=== PATIENT | male | born 1975 | race Hispanic/Latino ===

== ENCOUNTER → 2022-01-04 16:56 | Outpatient (CLI) | payer BC, SELFPAY ==
--- NOTE | ~2022-01-04 | XR_ITS ---
EXAMINATION: XR chest 2V EXAM DATE: 01/04/2022 17:09 INDICATION: COUGH > 1 mo, afebrile; hx of HTN, non smoker . TECHNIQUE: Frontal and lateral projections of the chest obtained and reviewed. There is no prior ten dy for comparison. FINDINGS: The lungs are clear. There are no pleural effusions. The cardiomediastinal silhouette is within normal limits. There is no pneumothorax suspected. The bones and soft tissues are unremarkab le. IMPRESSION: No acute cardiopulmonary findings. Reviewed, dictated and finalized at location G.
== END ==
PROVIDERS: PCP Emergency Medicine; Visit Provider Emergency Medicine
DX: R05.9 Cough, unspecified (principal); I10 Essential (primary) hypertension
CPT/HCPCS: 71046

== ENCOUNTER → 2022-01-06 00:39 | Outpatient (CLI) | payer BC, SELFPAY ==
[2022-01-06 14:06] LABS: SARS-CoV-2 RNA PCR Negative
== END ==
PROVIDERS: PCP Emergency Medicine; Visit Provider Emergency Medicine
DX: Z01.812 Encounter for preprocedural laboratory examination (principal); Z20.822 Contact with and (suspected) exposure to COVID-19
CPT/HCPCS: C9803; U0003; U0005

== ENCOUNTER 2024-01-07 14:24 | Outpatient (CLI) | payer OTHER, SELFPAY ==
--- NOTE | ~2024-01-07 | XR_ITS ---
EXAMINATION: XR tibia fibula LT 2V INDICATION: Left lower limb edema TECHNIQUE: AP and lateral views of the left tibia and fibula are obtained on three radiographs. COMPARISON: 01/28/2018 FINDINGS: No fracture, dislocation, or subluxation. The bones, soft tissues, and joint spaces are nor mal. IMPRESSION: 1. No acute osseous abnormality. Reviewed, dictated and finalized at location F.
--- NOTE | ~2024-01-07 | US_ITS ---
EXAMINATION: US venous doppler [facility] DATE: 01/07/2024 15:03 INDICATION: Left lower limb edema TECHNIQUE: Potter scale images without and with compression and Doppler images of the left lower extrem ity veins were obtained. COMPARISON: None FINDINGS: The left common femoral vein, profunda femoral vein, femoral vein, popliteal vein, peroneal trunk, posterior tibial veins, and greater saphenous vein are patent. IMPRESSION: 1. Patent left lower extremity veins. No evidence of deep venous thrombosis. Reviewed, dictated and finalized at location F.
== END 2024-01-07 14:25 | disposition home or self-care (01) ==
PROVIDERS: PCP Emergency Medicine; Visit Provider Emergency Medicine
DX: R60.0 Localized edema (principal)
CPT/HCPCS: 73590; 93971

== ENCOUNTER 2025-03-18 11:18 | Outpatient (CLI) | payer BC, SELFPAY ==
--- NOTE | ~2025-03-18 | MMUS_ITS ---
Examination: MM diagnostic RAPHAEL RT W brian and US breast RT limited INDICATION: 49-year old MALE; right breast lump and pain retroareolar region X one month COMPARISON: None TECHNIQUE: Digital breast tomosynthesis CC and MLO views of the RIGHT breast and left MLO were obtain ed with computer-aided detection to assist in interpretation of the study. FINDINGS: The breasts are heterogeneously dense, which may obscure small masses. There is moderate vo lume of fibroglandular tissue in RIGHT breast compatible with gynecomastia. There are no suspicious masses, calcifications, architectural distortion or any other abnormality in BILATERAL breast. RIGHT BREAST ULTRASOUND FINDINGS: Targeted evaluation of the area of painful lump in right breast was completed. Normal appearing fibro glandular tissue is identified. There are no suspicious cystic or solid mass seen. IMPRESSION: FINDINGS COMPATIBLE WITH GYNECOMASTIA CORRELATES TO THE AREA OF PAINFUL LUMP IN THE RIGHT BREAST . FU RTHER EVALUATION OF PATIENT'S PALPABLE LUMP SHOULD BE BASED ON CLINICAL IMPRESSION. FOLLOW-UP CLINICALLY WARRANTED. RECOMMENDATION: CLINICAL MANAGEMENT OF AREA OF PAIN BI-RADS 2, BENIGN Reviewed, dictated and finalized at location B. IMPRESSION: FINDINGS COMPATIBLE WITH GYNECOMASTIA CORRELATES TO THE AREA OF PAINFUL LUMP IN THE RIGHT BREAST . FURTHER EVALUATION OF PATIENT'S PALPABLE LUMP SHOULD BE BAS ED ON CLINICAL IMPRESSION. FOLLOW-UP CLINICALLY WARRANTED. RECOMMENDATION: CLINICAL MANAGEMENT OF AREA OF PAIN BI-RADS 2, BENIGN
--- OUTSIDE RECORDS SUMMARY | 2025-03-18 12:27 | XMS_ITS | Clinical Summary ---
Author Organization [facility] Address [address] [place] [address] Care Team Providers Care Egg Sorter Name Role Phone Unavailable Primary Care Provider Unavailabl e Source Comments [facility],non-owned Affiliates and Associated Physician Practices is amultiple site organization consisting of ambulatory clinics and hospital sitesin [place], [place], [place] and [place]. This disclosure is being madepursuant to the Care Everywhere program and may not contain all information available regarding this patient. 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
--- OUTSIDE RECORDS SUMMARY | 2025-03-18 12:27 | XMS_ITS | CONTINUITY OF CARE DOCUMENT ---
Author Name beata cota Address Unknown Organization [facility] Address [address] [place] [address] Phone [phone] Care Team Providers Care Industrial Safety And Health Manager Name Role Phone Eddi Singh MD Unavailable [phone] Eddi Singh MD Unavailable [phone] INSURANCE PROVIDERS Payer name Policy type / Coverage type [place] [employer] party ID [facility] [id number]
--- OUTSIDE RECORDS SUMMARY | 2025-03-18 12:27 | XMS_ITS | Continuity of Care Document ---
Author Organization [facility] Address [address] [place] [address] [address] [place] [address] Phone Care Team Providers Care Field Administrator Name Role Phone Chang OD, Laurent Unavailable Unavailable Procedures Procedure Date Eye Exam, New Patient Advance Directives Directive Yes / No Effective Date File Name No Information Encounters Encounter Description Practice Location Reason(s) For Visit Diagnoses Date Provider Providers Copied on Encounter [facility], [address] [place] [address] [address], [place], [place], [id number], [place] tel:[phone] [facility] [place] No Information 7-200 7 Chang OD Laurent. [address] , [address], [place], [address], [place]. tel:[phone] Family History Family Member Type Diagnosis Age At Onset No Information Payers Payer name Insurance type Covered democrat ID Authoriza tion(s) Medicaid [facility] [id number] Social History Type Description Quantity Date Captured [...]
--- OUTSIDE RECORDS SUMMARY | 2025-03-18 12:27 | XMS_ITS | Continuity of Care Document ---
Author Organization [facility] Address [address] [facility] [place] [address] [place] [address] Phone Care Team Providers Care Credit Card Associate Name Role Phone Devyn Tabares MD Unavailable Unavailable Allergies, Adverse Reactions, Alerts Substance Reaction Status Criticality No Known Allergies Active No Inform ation Medications Medication Instructions Dosage Effective Dates (start - stop) Status Comments Ambien 10 mg tablet take 1 tablet by oral route every day at bedtime as needed 10 MG - Active avoid drivi ng or operate machines irbesartan 150 mg tablet take 1 tablet by oral route every day 150 MG - Active Cymbalta 30 mg capsule,delayed release take 1 capsule by oral route every day 30 MG - Active Procedures Procedure Date OFFICE/OUTPATIENT VISIT, EST OFFICE/OUTPATIENT VISIT, EST PREV [...] Diagnoses Date Provider Providers Copied on Encounter [facility], [place], [address], [place], [address], tel:[phone] [facility] [place] No Information [address] [place], [address] , [place]. tel:[phone] OFFICE/OUTPA TIENT VISIT, EST [facility] [place], [address], [place], [address], tel:[phone] [facility] HTN (chief complaint) GERD1 (chief complaint) cough1 (chief complaint) depression 1 (chief complaint) breast1 (chief complaint) LFT (chief complaint) Essential (primary) hypertensionGERD w/o esophagitisMild intermittent asthma, uncomplicatedPolyp of colonMastodyniaGene ralized Anxiety DisorderLiver disease [address], [place], [place], [address] , [place]. tel:[phone] OFFICE/OUTPA TIENT VISIT, EST [facility] [place], [address], [place], [place], [address], [place] tel:[phone] [facility] [place] HTN (chief complaint) cough1 (chief complaint) GERD1 (chief complaint) Essential (primary) hypertensionMild intermittent asthma, uncomplicatedGERD w/o esophagitis Fe-2 5 Rayshawn Shepard. [address], [place], [place], [address] , [place]. tel:[phone] PREV VISIT, EST, AGE 40-64 [facility] [place], [address], [place], [place], [address], [place] tel:[phone] [facility] [place] physical (chief complaint) Encounter for general adult medical exam w abnormal findingsEssential (primary) hypertensionPrimary insomniaPolyp of colonAcute bronchitis Feb-0 5 Rayshawn Shepard. [address], [place], [place], [address] , [place]. tel:[phone] OFFICE/OUTPA TIENT VISIT, EST [facility] [place], [address], [place], [place], [address], [place] tel:[phone] [facility] [place] cough1 (chief complaint) eczema1 (chief complaint) Acute bronchitisEczema Sep- 4 Rayshawn Shepard. [address], [place], [place], [address] , [place]. tel:[phone] OFFICE/OUTPA TIENT VISIT, EST [facility] [place], [address] [place], [address], [place] tel:[phone] [facility] Medicine insomnia1 (chief complaint) HTN (chief complaint) skin (chief complaint) Essential (primary) hypertensionEczemaT inea corporisPrimary insomnia Jun-2 4 Rayshawn Shepard. [address], [place], [place], [address] , [place]. tel:[phone] OFFICE/OUTPA TIENT VISIT, EST [facility] [place], [address], [place], [place], [address], [place] tel:[phone] [facility] insomnia1 (chief complaint) leg pain1 (chief complaint) skin (chief complaint) knee pain1 (chief complaint) Pain in left lower legPrimary insomniaUpper abdominal painPain in right kneeEdema 4 Rayshawn Shepard. [address], [place], [place], [address] , [place]. [phone] OFFICE/OUTPA TIENT VISIT, EST [facility] [place], [address], [place], [place], [address], [place] tel:[phone] [facility] insomnia1 (chief complaint) leg edema1 (chief complaint) abd pain1 (chief complaint) knee pain1 (chief complaint) Pain in left lower legPain in right kneeUpper abdominal painPrimary insomnia 4 Rayshawn Chung [address], [place], [place], [address] , [place]. [phone] PREV VISIT, EST, AGE 40-64 [facility], [address], [place], [place], [address], [place] tel:[phone] [facility] physical (chief complaint) Encounter for general adult medical exam w abnormal findingsEssential (primary) hypertensionPrimary insomniaEczemaKeloi d 3 Rayshawn Chung [address], [place], [place], [address] , [place]. [phone] PREV VISIT, EST, AGE 40-64 [facility] [place], [address], [place], [place], [address], [place] tel:[phone] [facility] physical (chief complaint) Encounter for general adult medical exam w abnormal findingsPrimary insomniaEssential (primary) hypertensionAbnorma l weight gain 3 Rayshawn Shepard. [address], [place], [place], [address] , [place]. tel:[phone] OFFICE/OUTPA TIENT VISIT, EST [facility] [place], [address], [place], [place], [address], [place] [phone] [facility] [place] sick (chief complaint) Viral infection 2 Tabares Devyn. [address], [place], [place], [address] , [place]. tel: [phone] OFFICE/OUTPA TIENT VISIT, EST [facility] [place], [address], [place], [place], [address], [place] tel:[phone] [facility] [place] insomnia1 (chief complaint) HTN (chief complaint) cough1 (chief complaint) glucose1 (chief complaint) liver disease1 (chief complaint) Liver diseasePrimary insomniaHyperglycem iaEssential (primary) hypertensionChronic cough 2 Rayshawn Shepard. [address], [place], [place], [address] , [place]. tel: [phone] OFFICE/OUTPA TIENT VISIT, EST [facility] [place], [address], [place], [place], [address], [place] tel:[phone] [facility] [place] cough1 (chief complaint) dizziness1 (chief complaint) fatigue1 (chief complaint) HTN (chief complaint) Viral infectionEssential (primary) hypertensionAbnorma l weight gainFatigueDizzines s 2 Rayshawn Shepard. [address], [place], [place], [address] , [place]. tel:[phone] PREV VISIT, EST, AGE 40-64 [facility] [place], [address], [place], [place], [address], [place] tel:[phone] [facility] [place] cough1 (chief complaint) Encounter for general adult medical exam w abnormal findingsLiver diseaseInsomniaEsse ntial (primary) hypertensionChronic cough 2 Rayshawn Devyn. [address], [place], [place], [address] , [place]. tel: [phone] OFFICE/OUTPA TIENT VISIT, EST [facility], [address], [place], [place], [address], [place] tel:[phone] [facility] insomnia1 (chief complaint) liver1 (chief complaint) pain1 (chief complaint) Liver diseaseEssential (primary) hypertensionInsomni aAtypical facial pain 1 Rayshawn Chung [address], [place], [place], [address] , [place]. tel:[phone] OFFICE/OUTPA TIENT VISIT, [facility], [address], [place], [place], [address], [place] tel:[phone] [facility] HTN (chief complaint) insomnia1 (chief complaint) liver1 (chief complaint) Liver diseaseInsomniaEsse ntial (primary) hypertension Mar- 1 Rayshawn Chung [address], [place], [place], [address] , [place]. tel:[phone] PREV VISIT, EST, AGE 40-64 [facility] [place], [address], [place], [place], [address], [place] tel:[phone] [facility] Medicine physical (chief complaint) Encounter for general adult medical exam w abnormal findingsTinea corporisInsomniaEss ential (primary) hypertensionLiver disease May- 0 Rayshawn Chung [address], [place], [place], [address] , [place]. tel:[phone] OFFICE/OUTPA TIENT VISIT, EST [facility], [address], [place], [place], [address], [place] tel:[phone] [facility] insomnia1 (chief complaint) HTN (chief complaint) liver1 (chief complaint) Cirrhosis of liverInsomniaEssent ial (primary) hypertension Dec-3 0 Rayshawn Shepard. [address], [place], [place], [address] , [place]. tel:[phone] OFFICE/OUTPA TIENT VISIT, [facility], [address], [place], [place], [address], [place] tel:[phone] [facility] [place] liver1 (chief complaint) Liver diseaseCirrhosis of liver Rayshawn Shepard. [address], [place], [place], [address] , [place]. [phone] Referring Provider: [address]ammad [address], [place], [place], [address]. tel:[phone] OFFICE/OUTPA TIENT VISIT, EST [facility] [place], [address], [place], [place], [address], [place] tel:[phone] [facility] [place] LFT (chief complaint) Liver disease Rayshawn Shepard. [address], [place], [place], [address] , [place]. [phone] Referring Provider: [address], [place], [place], [address]. tel:[phone] PREV VISIT, EST, AGE 40-64 [facility] [place], [address], [place], [place], [address], [place] tel:[phone] [facility] PHysical (chief complaint) Encounter for general adult medical exam w abnormal findingsInsomniaEss ential (primary) hypertension 9 Rayshawn Shepard. [address], [place], [place], [address] , [place]. [phone] Referring Provider: [address], [place], [place], [address]. tel:[phone] OFFICE/OUTPA TIENT VISIT, EST [facility] [place], [address], [place], [place], [address], [place] tel:[phone] [facility] HTN (chief complaint) insomnia1 (chief complaint) nevus1 (chief complaint) InsomniaEssential (primary) hypertensionOther hypertrophic disorders of the skin 8 Rayshawn Shepard. [address], [place], [place], [address] , [place]. [phone] Referring Provider: Devyn Tabares, [address], [place], [place], [address]. tel:[phone] PREV VISIT, EST, AGE 40-64 [facility] [place], [address], [place], [place], [address], [place] [phone] [facility] PHysical (chief complaint) Encounter for general adult medical exam w abnormal findingsNight sweatsEssential (primary) hypertensionPain in left ankleInsomnia 8 Rayshawn Shepard. [address], [place], [place], [address] , [place]. [phone] Referring Provider: Hammad [address], [place], [place], [address]. tel:[phone] OFFICE/OUTPA TIENT VISIT, EST [facility] [place], [facility] [address], [place], [place], [address], [place] [phone] [facility] insomnia1 (chief complaint) HTN (chief complaint) axillary pain1 (chief complaint) urinary frequency (chief complaint) InsomniaEssential (primary) hypertensionLocaliz ed enlarged lymph nodesNocturia 7 Rayshawn Shepard. [address], [place], [place], [address] , [place]. [phone] Referring Provider: [address], [place], [place], [address]. tel:[phone] PREV VISIT, EST, AGE 40-64 [facility] [place], [address], [place], [place], [address], [place] [phone] [facility] PHysical (chief complaint) Encounter for general adult medical exam w abnormal findingsInsomniaEss ential (primary) hypertensionNocturi a 7 [address], [place], [place], [address] , [place]. [phone] Referring Provider: Hammad [address], [place], [place], [address]. tel:[phone] OFFICE/OUTPA TIENT VISIT, EST [facility] [place], [address], [place], [place], [address], [place] tel:[phone] [facility] [place] insomnia1 (chief complaint) HTN (chief complaint) anxiety1 (chief complaint) knee pain1 (chief complaint) Other insomniaEssential (primary) hypertensionMajor depressive disorder, single episode, unspecifiedPain in right knee 0 3-201 6 Rayshawn Shepard. [address], [place], [place], [address] , [place]. [phone] Referring Provider: Hammad [address], [place], [place], [address]. tel:[phone] OFFICE/OUTPA TIENT VISIT, [facility], [address], [place], [place], [address], [place] tel:[phone] [facility] [place] HTN (chief complaint) insomnia1 (chief complaint) depression 1 (chief complaint) coldsore (chief complaint) Essential (primary) hypertensionMajor depressive disorder, single episode, unspecifiedOther insomniaHerpes simplex infection 0 7 6 Rayshawn Shepard. [address], [place], [place], [address] , [place]. [phone] Referring Provider: Hammad [address], [place], [place], [address]. tel:[phone] OFFICE/OUTPA TIENT VISIT, [facility], [address], [place], [place], [address], [place] tel:[phone] [facility] [place] HTN (chief complaint) cough (chief complaint) depression (chief complaint) mole (chief complaint) Essential (primary) hypertensionRash and other nonspecific skin eruptionAcute bronchitis, unspecifiedDepressi on 0-201 6 Rayshawn Shepard. [address], [place], [place], [address] , [place]. [phone] Referring Provider: Hammad [address], [place], [place], [address]. tel:[phone] OFFICE/OUTPA TIENT VISIT, [facility], [address], [place], [place], [address], [place] tel:[phone] [facility] HTN1 (chief complaint) insomnia1 (chief complaint) sick (chief complaint) Essential (primary) hypertensionOther insomniaAcute upper respiratory infection, unspecifiedVitamin D deficiency, unspecified 6 Rayshawn Shepard. [address], [place], [place], [address] , [place]. tel:[phone] Referring Provider: Hammad [address], [place], [place], [address]. tel:[phone] PREV VISIT, NEW, AGE 40-64 [facility], [address], [place], [place], [address], [place] tel:[phone] [facility] Physical (chief complaint) Encounter for general adult medical exam w abnormal findingsEssential (primary) hypertensionOther insomniaCough 6 Rayshawn Shepard. [address], [place], [place], [address] , [place]. tel:[phone] Referring Provider: Hammad [address] [facility] [address], [place], [place], [address]. tel:[phone] Family History Family Member Type Diagnosis Age At Onset Mother Problem (finding) Stroke Father Problem (finding) Unknown Brother Problem (finding) Alive and well Payers Payer name Insurance type Covered libertarian ID Authorlitzya anabel(s) [facility] CI [id number] Social History Type Description Quantity Date Captured Comments Sex Male Smoking Status No Information Chief Complaint And Reason For Visit No Information Plan Of Treatment Date Type Action Status Goal Special diet education compl eted Goal Special diet education compl eted Goal Special diet education compl eted Goal Special diet education compl eted Goal Special diet education compl eted Goal Special diet education compl eted Referral Ordered: MAMMOGRAM, ONE BREAST ordered Referral Ordered: COLONOSCOPY AND BIOPSY ordered Referral Ordered: GIDEON ZULUAGA -Allopathic & Osteopathic Physicians : Orthopaedic Surgery (related to Pain in right knee) ordered Referral Referred To: GIDEON ZULUAGA [address], [place], [phone] Ordered: Referrals: Allopathic & Osteopathic Physicians : Orthopaedic Surgery. GIDEON ZULUAGA. Evaluate and treat ordered Referral Ordered: LOWER LEG TIB/FIB XRAY Left ordered Referral Ordered: Jayme Santana -[facility]opathic Physicians : Internal Medicine : Gastroenterology (related to Liver disease) ordered Referral Referred To: Jayme Santana [address]
[facility] [address], [place], [phone] Ordered: Referrals: Allopathic & Osteopathic Physicians : [...] Samayoa [address] [place], [phone] Ordered: Referrals: Jesus Samayoa. Evaluate and treat ordered Referral Ordered: Bjorn Bailon (related to Rash and other nonspecific skin eruption) ordered Referral Referred To: Bjorn Bailon [address] [place], [phone] Ordered: Referrals: Bjorn Bailon. Evaluate and treat ordered History Of Present Illness Encounter Date Complaint History Of Prese nt Illness GERD1 Pt has history o f mild GERD Pt states that he is doing ok currently and he has not been taking omeprazole. cough1 Pt states that h is cough resolved and he is off all inhalers Pt denies any sob depression1 Pt has anxiety a nd depression. Pt failed lexapro in the past. Pt is very irritable and he has lost all interests .Pt denies any suicidal or homicidal thought .Pt denies any crying spells breast1 Pt c/o acute rig ht breast pain and swelling since two weeks ago under his right nipple Pt denies any drainage Pt denies any palpable nodule. Pt notices tenderness around the nipple area LFT Pt has mildly hi gh LFT Pt denies any abd pain or jaundice HTN Pt has HTN Pt ta kes irbesartan and his bp is around 120/80 at home. he run out of medicine 3 days ago and his bp is borderline high. Pt denies any chest pain or headache cough1 Pt c/o persisten t clear phlegmy cough for at least two moths pt denies any fever ,chill chest pain, Pt had normal chest x ray pt took abx 3 weeks ago but did not help .Pt also notices some wheezing and sob recently as well Pt denies any GERD HTN pt has HTN. Pt t akes norvasc and his bp has been high [...] ecze ma. Pt needs steroid topical refilled. insomnia1 Pt has insomnia Pt takes ambien qhs PRN and doing ok. HTN Pt has HTN. Pt t renu hsuganga and his bp is ok. skin Pt has some dry skin patch behind his neck and he did well with steroid topical Pt also notices a slightly whitish spot mid chest area for several weeks. Pt denies any itching Pt denies any spreading of the rash leg pain1 Pt has history o f [...] with ortho soon. Pt denies any injury insomnia1 Pt has chronic i nsomnia Pt takes ambien qhs and doing ok. leg edema1 Pt has history o f [...] has been noticing swelling for several months. abd pain1 Pt notices a sma ll [...] liver. Pt denies any bruising or bleeding fatigue1 Pt has been feel ing fatigue since last month Pt sleeps ok Pt has mild snoring only when he is tired. HTN Pt has mild HTn Pt takes norvasc and his bp is borderline high dizziness1 Pt feels mild di zziness without vertigo for one week Pt has poor balance when he walks. Pt denies any headache or palpitation. Pt denies any syncope cough1 Pt has persisten t dry cough [...] calf pain or recent travel or bedrest cough1 Pt needs annual physical. pt has [...] noncompliant with liver MRI or GI referral insomnia1 Pt has chronic i nsomnia. pt denies any snoring or fatigue Pt takes ambien qhs PRN and doing ok. pt needs refill pain1 Pt c/o left ear pain, left [...] states that he rarely drinks alcohol now HTN Pt has HTN Pt ta jeremy norgloriac and his bp is ok Pt denies any swelling insomnia1 Pt has insomnia Pt denies any snoring or any trouble with breathing at night .Pt doing well with ambien. Pt needs refill liver Pt has ? liver c irrhosis. Pt denies any abd pain or jaundice or bruising. Pt is noncompliant with liver specialist referral. His MRI of liver was denied by insurance. Pt states that he rarely drinks alcohol now physical Pt needs annual physical Pt has [...] HTN Pt has HTN. pt t renu fair. His bp is around 120/70 at home [...] needs refill. Pt denies any other complaints. HTN Pt has HTn. P ta kes norvasc and his bp is stable. Pt denies any swelling or water retention insomnia1 Pt has insomnia pt takes ambien qhs and doing ok. Pt does not snore or having any trouble with breathing at night. Pt sleeps ok with ambien nevus1 Pt notices a sma ll mole in [facility] area for several months and is getting slightly more protruding recently. Pt denies any bleeding or irritation. PHysical Pt needs annual physical. Pt has [...] for several months. pt recently traveled to [place]. Pt denies any coughing or sob urinary frequency Pertinent nega tives include constipation, diarrhea, vomiting, dysuria or hematuria. Associated symptoms additional comments: Pt states that urinary frequency and nocturia resolved. Pt did not do lab. Pt denies any dysuria. axillary pain1 Pt c/o bilateal axillary pain, worse on left side and also some swelling nodule on left side for one week. Pt denies any drainage. Pt denie sany fever HTN Pt has HTn. Pt t akes norvasc and his bp is stable. insomnia1 Pt states that h e needs to take ambien nightly in order to fall asleep. Pt denie sany snoring. Pt denies any fatigue. PHysical Pt needs annaul physical. pt has [...] night Pt takes ambien and working well depression1 Pt states that h is depression is uh better with lexapro. His mood is better. Pt denies any crying spells. Pt denies any feeling of hopelessness insomnia1 Pt has chornic i nsomnia Pt takes ambien and donig ok. Pt denies any snorning. Pt does not take ambien nightly HTN Pt takes norvac for HTN and his BP is ok today. Pt denies any chest pain or headache coldsore Pt has recurrent cold sore around [...] suicidal or homicidal thought. cough Additional infor mation: Pt just started mild dry cough since [...] headache His BP is also high at [facility] per patient insomnia1 Pt states that [...] other complaints. Instructions Date Instruction Additional Infor mation Special diet education Related t o Body mass index (BMI) 28.0-28.9, adult Special diet education Related t o Body mass index (BMI) 28.0-28.9, adult Increase physical activity Relat ed to Liver disease Special diet education Related t o Body mass index (BMI) 28.0-28.9, adult Increase physical activity Relat ed to Encounter for general adult medical exam w abnormal findings Weight management Related to Enc ounter for [...] Increase physical activity Relat ed to Insomnia Prescribed Activity and Exercise Education Related to Dietary Surveillance and Counseling Prescribed Diet Educ ation/Lifestyle Education Regarding Diet Related to Dietary Surveillance and Counseling Increase activity. Related to Es sential (primary) [...] Surveillance and Counseling Assessments Type Assessment Date No Information
== END 2025-03-18 11:19 | disposition home or self-care (01) ==
PROVIDERS: PCP Emergency Medicine; Visit Provider Emergency Medicine
DX: N64.4 Mastodynia (principal)
CPT/HCPCS: 76642; 77061; 77065; G0279

== ENCOUNTER 2025-03-25 03:52 | Day surgery (SDC) | payer BC, SELFPAY ==
[2025-02-02 14:20] VITALS: BMI 32.9
--- OUTSIDE RECORDS SUMMARY | 2025-02-12 01:22 | XMS_ITS | Clinical Summary ---
Author Organization [facility] Address [address] [place] [address] Care Team Providers Care Consumer Lender Name Role Phone Unavailable Primary Care Provider Unavailabl e Source Comments [facility],non-owned Affiliates and Associated Physician Practices is amultiple site organization consisting of ambulatory clinics and hospital sitesin [place], [place], [place]. This disclosure is being madepursuant to the Care Everywhere program and may not contain all information available regarding this patient. 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 Gender Identity Not on file Sexual Orientation Not on file Plan of Treatment Health Maintenance Due Date Last Done Comments COLOGUARD (AGES 45-75) - COL ON CA SCREENING 1975 COLON MONITORING 1975 COLONOSCOPY - COLON CA SCREENING 1975 CT COLONOGRAPHY - COLON CA SCREENING 1975 Colorectal Cancer Screening 1975 FIT - COLON CA SCREENING 1975 FLEX SIG - COLON CA SCREENING 1975 LIPID TESTING 1975 HIV SCREENING 1990 HEPATITIS C SCREENING 06/06/1993 DTAP/TDAP/TD VACCINES (1 - Tdap) 1994 HEPATITIS B VACCINE (1 of 3 - 19+ 3-dose series) 1994 COVID-19 VACCINE (1 - 2023-2 5 season) 2024 DEPRESSION SCREENING 10/14/2024 ZOSTER VACCINE (1 of 2) 2025 INFLUENZA VACCINE (Season Ended) 2025 HIB VACCINE Aged Out No longer eligi ble based on patient's age to complete this topic HPV VACCINE Aged Out No longer eligi ble based on patient's age to complete this topic MENINGOCOCCAL (Group B) VACC INE SHARED DECISION-MAKING Aged Out No longer eligibl e based on patient's age to complete this topic MENINGOCOCCAL GROUPS A/C/Y/W VACCINE Aged Out No longer eligible b ased on patient's age to complete this topic Insurance ANTHEM * Guarantor: Ronald Harris Account Type Relation to Patient Date of Phone Billing Address Personal/Family Self ANTHEM
--- OUTSIDE RECORDS SUMMARY | 2025-02-12 01:22 | XMS_ITS | Continuity of Care Document ---
Author Organization [facility] Address [address] [place] [address] [address] [place] [address] Phone Care Team Providers Care Tacker Off Name Role Phone Chang OD, Laurent Unavailable Unavailable Procedures Procedure Date Eye Exam, New Patient Advance Directives Directive Yes / No Effective Date File Name No Information Encounters Encounter Description Practice Location Reason(s) For Visit Diagnoses Date Provider Providers Copied on Encounter [facility], [address] [place] [address] [address], [place], [place], [id number], [place] tel:[phone] [facility] [place] No Information [phone] Chang OD Laurent. [address] [facility] [address] , [address], [place], [address], [place]. tel:[phone] Family History Family Member Type Diagnosis Age At Onset No Information Payers Payer name Insurance type Covered green party ID Authoriza tion(s) Medicaid [facility] [id number] Social History Type Description Quantity Date Captured Comments Sex Male Smoking Status No Information Chief Complaint And Reason For Visit No Information Reason For Referral Reason For Referral No Information History Of Present Illness Encounter Date Complaint History Of Prese nt Illness No Information Functional Status Date Functional Assessmen t No Information Instructions Date Instruction Additional Infor mation No Information Assessments Type Assessment Date No Information Patient Care Teams Name Effective Dates (start - stop) Status Members No Information
--- OUTSIDE RECORDS SUMMARY | 2025-02-12 01:22 | XMS_ITS | Continuity of Care Document ---
Author Organization [facility] Address [address] [place] [place] [address] [place] [address] Phone Care Team Providers Care Human Resources Trainer Name Role Phone Devyn Tabares MD Unavailable Unavailable Allergies, Adverse Reactions, Alerts Substance Reaction Status Criticality No Known Allergies Active No Inform ation Medications Medication Instructions Dosage Effective Dates (start - stop) Status Comments Symbicort 160 mcg-4.5 mcg/actuation HFA aerosol inhaler inhale 2 puff by inhalation route 2 times every day in the morning and evening 2.00 puff - Active irbesartan 150 mg tablet take 1 tablet by oral route every day 150 MG - Active omeprazole 20 mg capsule,delayed release take 1 capsule by oral route every day before a meal 20 MG - Active Ambien 10 mg tablet take 1 tablet by oral route every day at bedtime as needed 10 MG - Active avoid driving or operate machines Singulair 10 mg tablet take 1 tablet by oral route every day in the evening 10 MG - Active Procedures Procedure Date OFFICE/OUTPATIENT VISIT, EST PREV VISIT, EST, AGE 40-64 OFFICE/OUTPATIENT VISIT, EST OFFICE/OUTPATIENT VISIT, EST OFFICE/OUTPATIENT VISIT, EST OFFICE/OUTPATIENT VISIT, EST OFFICE/OUTPATIENT VISIT, EST PREV VISIT, EST, AGE 40-64 OFFICE/OUTPATIENT VISIT, EST PREV VISIT, EST, AGE 40-64 OFFICE/OUTPATIENT VISIT, EST OFFICE/OUTPATIENT VISIT, EST OFFICE/OUTPATIENT VISIT, EST OFFICE/OUTPATIENT VISIT, EST PREV VISIT, EST, AGE 40-64 OFFICE/OUTPATIENT VISIT, EST OFFICE/OUTPATIENT VISIT, EST OFFICE/OUTPATIENT VISIT, EST PREV VISIT, EST, AGE 40-64 OFFICE/OUTPATIENT VISIT, EST OFFICE/OUTPATIENT VISIT, EST OFFICE/OUTPATIENT VISIT, EST OFFICE/OUTPATIENT VISIT, EST PREV VISIT, EST, AGE 40-64 OFFICE/OUTPATIENT VISIT, EST OFFICE/OUTPATIENT VISIT, EST PREV VISIT, EST, AGE 40-64 OFFICE/OUTPATIENT VISIT, EST OFFICE/OUTPATIENT VISIT, EST PREV VISIT, EST, AGE 40-64 OFFICE/OUTPATIENT VISIT, EST OFFICE/OUTPATIENT VISIT, EST OFFICE/OUTPATIENT VISIT, EST OFFICE/OUTPATIENT VISIT, EST OFFICE/OUTPATIENT VISIT, EST PREV VISIT, NEW, AGE 40-64 OFFICE/OUTPATIENT VISIT, NEW Advance Directives Directive Yes / No Effective Date File Name No Information Encounters Encounter Description Practice Location Reason(s) For Visit Diagnoses Date Provider Providers Copied on Encounter OFFICE/OUTPA TIENT VISIT, EST [facility], [address] [place], [place], [address], [place] tel:[phone] [facility] HTN (chief complaint) cough1 (chief complaint) GERD1 (chief complaint) Essential (primary) hypertensionMild intermittent asthma, uncomplicatedGERD w/o esophagitis 5 Rayshawn Shepard. [address] [place], [address] , [place]. tel:[phone] PREV VISIT, EST, AGE 40-64 [facility], [address] [place], [place], [address], [place] tel:[phone] [facility] physical (chief complaint) Encounter for general adult medical exam w abnormal findingsEssential (primary) hypertensionPrimary insomniaPolyp of colonAcute bronchitis Fe-0 5 Tabares Devyn. [address], [place], [place], [address] , [place]. tel:[phone] OFFICE/OUTPA TIENT VISIT, [facility], [address], [place], [place], [address], [place] tel:[phone] [facility] cough1 (chief complaint) eczema1 (chief complaint) Acute bronchitisEczema 4 Rayshawn Shepard. [address], [place], [place], [address] , [place]. tel:[phone] OFFICE/OUTPA TIENT VISIT, [facility], [address], [place], [place], [address], [place] tel:[phone] [facility] insomnia1 (chief complaint) HTN (chief complaint) skin (chief complaint) Essential (primary) hypertensionEczemaT inea corporisPrimary insomnia 4 Rayshawn Shepard. [address], [place], [place], [address] , [place]. tel:[phone] OFFICE/OUTPA TIENT VISIT, [facility], [address], [place], [place], [address], [place] tel:[phone] [facility] insomnia1 (chief complaint) leg pain1 (chief complaint) skin (chief complaint) knee pain1 (chief complaint) Pain in left lower legPrimary insomniaUpper abdominal painPain in right kneeEdema 4 Rayshawn Shepard. [address], [place], [place], [address] , [place]. tel:[phone] OFFICE/OUTPA TIENT VISIT, [facility], [address], [place], [place], [address], [place] tel:[phone] [facility] insomnia1 (chief complaint) leg edema1 (chief complaint) abd pain1 (chief complaint) knee pain1 (chief complaint) Pain in left lower legPain in right kneeUpper abdominal painPrimary insomnia 4 Rayshawn Shepard. [address], [place], [place], [address] , [place]. [phone] PREV VISIT, EST, AGE 40-64 [facility], [address], [place], [place], [address], [place] tel:[phone] [facility] physical (chief complaint) Encounter for general adult medical exam w abnormal findingsEssential (primary) hypertensionPrimary insomniaEczemaKeloi d 3 Rayshawn Shepard. [address], [place], [place], [address] , [place]. [phone] PREV VISIT, EST, AGE 40-64 [facility], [address], [place], [place], [address], [place] tel:[phone] [facility] physical (chief complaint) Encounter for general adult medical exam w abnormal findingsPrimary insomniaEssential (primary) hypertensionAbnorma l weight gain 3 Rayshawn Shepard. [address], [place], [place], [address] , [place]. [phone] OFFICE/OUTPA TIENT VISIT, EST [facility], [address], [place], [place], [address], [place] tel:[phone] [facility] sick (chief complaint) Viral infection 2 Rayshawn Shepard. [address], [place], [place], [address] , [place]. tel:[phone] OFFICE/OUTPA TIENT VISIT, EST [facility], [address], [place], [place], [address], [place] tel:[phone] [facility] insomnia1 (chief complaint) HTN (chief complaint) cough1 (chief complaint) glucose1 (chief complaint) liver disease1 (chief complaint) Liver diseasePrimary insomniaHyperglycem iaEssential (primary) hypertensionChronic cough 2 Rayshawn Shepard. [address], [place], [place], [address] , [place]. tel:[phone] OFFICE/OUTPA TIENT VISIT, [facility], [address] [place], [place], [address], [place] tel:[phone] [facility] cough1 (chief complaint) dizziness1 (chief complaint) fatigue1 (chief complaint) HTN (chief complaint) Viral infectionEssential (primary) hypertensionAbnorma l weight gainFatigueDizzines s 2 Rayshawn Chung [address], [place], [place], [address] , [place]. tel:[phone] PREV VISIT, [facility], AGE 40-64 [facility], [address] [place], [place], [address], [place] tel:[phone] [facility] cough1 (chief complaint) Encounter for general adult medical exam w abnormal findingsLiver diseaseInsomniaEsse ntial (primary) hypertensionChronic cough 2 Rayshawn Chung [address], [place], [place], [address] , [place]. tel:[phone] OFFICE/OUTPA TIENT VISIT, [facility], [address] [place], [address], [place] tel:[phone] [facility] insomnia1 (chief complaint) liver1 (chief complaint) pain1 (chief complaint) Liver diseaseEssential (primary) hypertensionInsomni aAtypical facial pain 1 Rayshawn Chung [address] [place], [address] , [place]. tel:[phone] OFFICE/OUTPA TIENT VISIT, [facility], [address] [place], [address], [place] tel:[phone] [facility] HTN (chief complaint) insomnia1 (chief complaint) liver1 (chief complaint) Liver diseaseInsomniaEsse ntial (primary) hypertension Esdras-0 9-202 1 Rayshawn Chung [address], [place], [place], [address] , [place]. tel:[phone] PREV VISIT, EST, AGE 40-64 [facility], [address], [place], [place], [address], [place] tel:[phone] [facility] physical (chief complaint) Encounter for general adult medical exam w abnormal findingsTinea corporisInsomniaEss ential (primary) hypertensionLiver disease May-11 20- 0 Rayshawn Shepard. [address], [place], [place], [address] , [place]. tel:[phone] OFFICE/OUTPA TIENT VISIT, [facility], [address], [place], [place], [address], [place] tel:[phone] [facility] insomnia1 (chief complaint) HTN (chief complaint) liver1 (chief complaint) Cirrhosis of liverInsomniaEssent ial (primary) hypertension Dec-3 0-202 0 Rayshawn Chung [address], [place], [place], [address] , [place]. tel:[phone] OFFICE/OUTPA TIENT VISIT, EST [facility], [address], [place], [place], [address], [place] tel:[phone] [facility] liver1 (chief complaint) Liver diseaseCirrhosis of liver 9 Rayshawn Chung [address], [place], [place], [address] , [place]. tel:[phone] Referring Provider: Devyn Tabares, [address], [place], [place], [address]. tel:[phone] OFFICE/OUTPA TIENT VISIT, EST [facility], [address], [place], [place], [address], [place] tel:[phone] [facility] LFT (chief complaint) Liver disease 9 Rayshawn Chung [address], [place], [place], [address] , [place]. tel:[phone] Referring Provider: [address], [place], [place], [address]. tel:[phone] PREV VISIT, EST, AGE 40-64 [facility], [address], [place], [place], [address], [place] tel:[phone] [facility] PHysical (chief complaint) Encounter for general adult medical exam w abnormal findingsInsomniaEss ential (primary) hypertension 9 Rayshawn Shepard. [address], [place], [place], [address] , [place]. [phone] Referring Provider: Hammad [address], [place], [place], [address]. tel:[phone] OFFICE/OUTPA TIENT VISIT, EST [facility], [address], [place], [place], [address], [place] tel:[phone] [facility] HTN (chief complaint) insomnia1 (chief complaint) nevus1 (chief complaint) InsomniaEssential (primary) hypertensionOther hypertrophic disorders of the skin 8 Rayshawn Shepard. [address], [place], [place], [address] , [place]. [phone] Referring Provider: H[address], [place], [place], [address]. tel:[phone] PREV VISIT, EST, AGE 40-64 [facility], [address], [place], [place], [address], [place] tel:[phone] [facility] PHysical (chief complaint) Encounter for general adult medical exam w abnormal findingsNight sweatsEssential (primary) hypertensionPain in left ankleInsomnia 8 Rayshawn Shpeard. [address], [place], [place], [address] , [place]. [phone] Referring Provider: [address], [place], [place], [address]. tel:[phone] OFFICE/OUTPA TIENT VISIT, EST [facility], [address], [place], [place], [address], [place] tel:[phone] [facility] insomnia1 (chief complaint) HTN (chief complaint) axillary pain1 (chief complaint) urinary frequency (chief complaint) InsomniaEssential (primary) hypertensionLocaliz ed enlarged lymph nodesNocturia 7 Rayshawn Shepard. [address], [place], [place], [address] , [place]. [phone] Referring Provider: Devyn Tabares, [address], [place], [place], [address]. tel:[phone] PREV VISIT, EST, AGE 40-64 [facility], [address], [place], [place], [address], [place] tel:[phone] [facility] PHysical (chief complaint) Encounter for general adult medical exam w abnormal findingsInsomniaEss ential (primary) hypertensionNocturi a 7 Rayshawn Shepard. [address], [place], [place], [address] , [place]. [phone] Referring Provider: H[address], [place], [place], [address]. tel:[phone] OFFICE/OUTPA TIENT VISIT, EST [facility], [address], [place], [place], [address], [place] tel:[phone] [facility] insomnia1 (chief complaint) HTN (chief complaint) anxiety1 (chief complaint) knee pain1 (chief complaint) Other insomniaEssential (primary) hypertensionMajor depressive disorder, single episode, unspecifiedPain in right knee 6 Rayshawn Shepard. [address], [place], [place], [address] , [place]. [phone] Referring Provider: [address], [place], [place], [address]. tel:[phone] OFFICE/OUTPA TIENT VISIT, [facility], [address], [place], [place], [address], [place] tel:[phone] [facility] HTN (chief complaint) insomnia1 (chief complaint) depression 1 (chief complaint) coldsore (chief complaint) Essential (primary) hypertensionMajor depressive disorder, single episode, unspecifiedOther insomniaHerpes simplex infection Apr-0 7-201 6 Rayshawn Shepard. [address], [place], [place], [address] , [place]. tel:[phone] Referring Provider: Devyn Tabares, [address], [place], [place], [address]. tel:[phone] OFFICE/OUTPA TIENT VISIT, [facility], [address], [place], [place], [address], [place] tel:[phone] [facility] HTN (chief complaint) cough (chief complaint) depression (chief complaint) mole (chief complaint) Essential (primary) hypertensionRash and other nonspecific skin eruptionAcute bronchitis, unspecifiedDepressi on 0- 6 Rayshawn Shepard. [address], [place], [place], [address] , [place]. tel:[phone] Referring Provider: [address], [place], [place], [address]. tel:[phone] OFFICE/OUTPA TIENT VISIT, [facility], [address], [place], [place], [address], [place] tel:[phone] [facility] HTN1 (chief complaint) insomnia1 (chief complaint) sick (chief complaint) Essential (primary) hypertensionOther insomniaAcute upper respiratory infection, unspecifiedVitamin D deficiency, unspecified Feb-0 8 6 Rayshawn Shepard. [address], [place], [place], [address] , [place]. tel:[phone] Referring Provider: [address], [place], [place], [address]. tel:[phone] PREV VISIT, NEW, AGE 40-64 [facility], [address], [place], [place], [address], tel:[phone] [facility] Physical (chief complaint) Encounter for general adult medical exam w abnormal findingsEssential (primary) hypertensionOther insomniaCough 6 Rayshawn Shepard. [address], [place], [place], [address] , [place]. tel:[phone] Referring Provider: [address], [place], [place], [address]. tel:[phone] Family History Family Member Type Diagnosis Age At Onset Mother Problem (finding) Stroke Father Problem (finding) Unknown Brother Problem (finding) Alive and well Payers Payer name Insurance type Covered republican ID Marquez little(s) [facility] [id number] Social History Type Description Quantity Date Captured Comments Alcohol Use Details beer 18 beer socially Caffeine Use Details Unknown Tobacco Use Status Never smoked tobacco 2024 Smoking Status Never smoker Sex Male Vital Signs Date / Time: Height Weight BMI Pulse Rate Blood Pressure Temperature Respiratory Rate Body Surface Area Head Circumference BMI percentile Pulse Ox Inhaled Ox 2:44 PM 67.00 in 209.00 lbs 32.7 3 kg/m eter (2) 70 /min 140/80 mm[Hg] 98.7 F 16 /min Chief Complaint And Reason For Visit From encounter dated '12/09/2024 14:44'. HTN (chief complaint). Description: pt has HTN. Pt takes norvasc and his bp has been high at home around 150/100. Pt denies any chest pain or headache cough1 (chief complaint). Description: Pt c/o persistent clear phlegmy cough for at least two mothspt denies any fever ,chill chest pain, Pt had normal chest x ray pt took abx 3 weeks ago but did not help .Pt also notices some wheezing and sob recently as well Pt denies any GERD GERD1 (chief complaint). Description: pt has intermittent GERD pt states that the symptoms are worse at night he notices some sore throat in the morning. Plan Of Treatment Date Type Action Status Goal Special diet education compl eted Goal Special diet education compl eted Goal Special diet education compl eted Goal Special diet education compl eted Goal Special diet education compl eted Goal Special diet education compl eted Referral Ordered: COLONOSCOPY AND BIOPSY ordered Referral Ordered: GIDEON ZULUAGA -[facility]opathic [facility]opathic Physicians : Orthopaedic Surgery (related to Pain in right knee) ordered Referral Referred To: GIDEON ZULUAGA [address], [place], [phone] Ordered: Referrals: [facility]opathic [facility] Osteopathic Physicians : Orthopaedic Surgery. GIDEON ZULUAGA. Evaluate and treat ordered Referral Ordered: LOWER LEG TIB/FIB XRAY Left ordered Referral Ordered: Jayme Santana -[facility] : Internal Medicine : Gastroenterology (related to Liver disease) ordered Referral Referred To: Jayme Santana [address], [phone] Ordered: Referrals: [facility]opathic [facility] Osteopathic Physicians : Internal Medicine : Gastroenterology. Jayme Santana. Evaluate and treat ordered Referral Ordered: MRI ABDOMEN W/O & W/DYE ordered Referral Ordered: US EXAM, ABDOM, COMPLETE ordered Referral Ordered: FOOT XRAY 3+ VIEWS ordered Referral Ordered: CHEST X-RAY PA/LAT TWO-VIEWS ordered Referral Ordered: US SOFT TISSUE CHEST ordered Referral Ordered: Jesus Samayoa (related to Pain in right knee) ordered Referral Referred To: Jesus Samayoa [address] [place], [phone] Ordered: Referrals: Jesus Samayoa. Evaluate and treat ordered Referral Ordered: Bjorn Bailon (related to Rash and other nonspecific skin eruption) ordered Referral Referred To: Bjorn Bailon [address] [place], [phone] Ordered: Referrals: Bjorn Bailon. Evaluate and treat ordered History Of Present Illness Encounter Date Complaint History Of Prese nt Illness cough1 Pt c/o persisten t clear phlegmy cough for at least two moths pt denies any fever ,chill chest pain, Pt had normal chest x ray pt took abx 3 weeks ago but did not help .Pt also notices some wheezing and sob recently as well Pt denies any GERD HTN pt has HTN. Pt t capriceowen manjula and his bp has been high at home around 150/100. Pt denies any chest pain or headache GERD1 pt has intermitt ent GERD pt states that the symptoms are worse at night he notices some sore throat in the morning. physical Pt needs annual physical pt has HTN and also insomnia Pt is on ambien qhs PRN and doing ok. Pt takes norvasc and his bp is borderline Pt denies any chest pain or headache .Pt c/o persistent productive cough for several weeks without sob. Pt did have fever as high as 101 for several days .Pt denies any chest pain or sob cough1 Pt c/o dry cough and swelling right cervical lymph and midsternal chest pain x 3 days Pt denies any sore throat or fever. Pt denies any sob Pt notices some sinus congestion with green nasal drainage Pt denies any ear pain. his has pneumonia now. eczema1 Pt has mild ecze ma. Pt needs steroid topical refilled. skin Pt has some dry skin patch behind his neck and he did well with steroid topical Pt also notices a slightly whitish spot mid chest area for several weeks. Pt denies any itching Pt denies any spreading of the rash HTN Pt has HTN. Pt t renu magallanesgloriac and his bp is ok. insomnia1 Pt has insomnia Pt takes ambien qhs PRN and doing ok. leg pain1 Pt has history o f osteomyelitis left tib/fib s/p surgery long time ago. Pt denies any leg pain Pt has chronic left calf atrophy post surgery. Pt notices some bilateral LE swelling after day of work on his feet, but seems worse around left lower leg area. Pt denies any claudication or any paresthesia. Pt denies any sob ,Pt denies any abd pain. Pt denies any leg redness or warmth ,Pt has been noticing swelling for several months. Pt had negative left tib/fib x ray and venous duplex doppler study. Pt denies any sob. Pt states that swelling improved skin Pt notices a sma ll slightly tender subcutaneous nodule right upper quadrant area. Pt denies any postprandial pain Pt has not done ultrasound yet insomnia1 Pt has chronic i nsomnia Pt takes ambien qhs and doing ok Pt needs ambien refilled. Pt denies any snoring knee pain1 Pt c/o right kne e pain chronically Pt denies any swelling, warmth, redness or warmth. Pt has roxanna with ortho soon. Pt denies any injury leg edema1 Pt has history o f osteomyelitis left tib/fib s/p surgery long time ago. Pt denies any leg pain Pt has chronic left calf atrophy post surgery. Pt notices some bilateral LE swelling after day of work on his feet, but seems worse around left lower leg area. Pt denies any claudication or any paresthesia. Pt denies any sob ,Pt denies any abd pain. Pt denies any leg redness or warmth ,Pt has been noticing swelling for several months. insomnia1 Pt has chronic i nsomnia Pt takes ambien qhs and doing ok. abd pain1 Pt notices a sma ll subcutaneous nodule right upper quadrant for several months and he notices some pain when he pushes the area. Pt denies any postprandial pain Pt denies any nausea, vomiting Pt only notices mild pain when he pushes on the spot. Pt denies any redness or warmth or drainage knee pain1 Pt has history o f right knee meniscus surgery several years ago. Pt notices recurrent right knee pain with some swelling for the past several weeks Pt denies any redness or warmth or ROM issue Pt denies any injury Pt states that the right knee pain is worse with movement and bending physical Pt needs annual physical pt has HTN and insomnia Pt takes norvasc and ambien and doing ok Pt accidently scratched right upper leg on metal bar 6 months ago and he notices persistent scarring and he notices some burning sometimes .Pt denies any bleeding .pt also notices some itching and dry skin around back of his neck for several months. Pt denies any other complaints physical Pt needs annual physical pt has chronic insomnia Pt takes ambien qhs PRN and doing ok Pt denies any snoring Pt has HTN Pt takes norvasc and his bp is stable .Pt gained some weight Pt has not been physically active .Pt denies any other complaints sick Pt c/o acute ons et of bilateral ear pain, sore throat, fever, and cough x 4 days. Pt also c/o running nose and myalgia. Pt denies any sob. His has similar symptoms Pt denies any GI symptoms. Pt states that he does not have thermometer at home so he could not check his temp but he feels warm insomnia1 Pt has chronic i nsomnia. pt takes ambien qhs PRN and doing ok. Pt denies any snoring or any trouble with breathing at night HTN Pt has HTN, Pt t akes norvasc and his bp is stable. Pt denies any swelling. cough1 Pt had persisten t cough, which seems improving.. Pt had negative chest x ray and COVID testing. Pt has been taking anti-histamine OTC Pt has slightly high eosinophile. glucose1 Pt has borderlin e high glucose. Pt denies any polyuria, polydipsia. liver disease1 Pt has history o f liver disease. Pt has been drinking less alcohol. Pt denies any abd pain or jaundice. Pt never did MRi of liver. Pt denies any bruising or bleeding cough1 Pt has persisten t dry cough for one month without other symptoms. Pt denies any sob ,Pt denies any chest pain, sinus symptoms, sore throat ,headache ,fever, etc. Pt denies any GI symptoms. His had COVID recently but he tested negative two weeks ago. Pt is fully vaccinated without boosters. Pt states that he started to have chest pain ans mild sob only when he coughs since 4 days ago. pt denies any loss of taste and smells. Pt took cefdinir which did not help but tussionex is helping his cough at night. Pt denies any calf pain or recent travel or bedrest dizziness1 Pt feels mild di zziness without vertigo for one week Pt has poor balance when he walks. Pt denies any headache or palpitation. Pt denies any syncope fatigue1 Pt has been feel ing fatigue since last month Pt sleeps ok Pt has mild snoring only when he is tired. HTN Pt has mild HTn Pt takes norvasc and his bp is borderline high cough1 Pt needs annual physical. pt has chronic insomnia Pt takes ambien qhs and doing ok Pt denies any snoring or fatigue Pt has HTN .Pt takes norvasc and his bp is around 130/60 at home per . Pt has persistent dry cough for one month without other symptoms. Pt denies any sob ,Pt denies any chest pain, sinus symptoms, sore throat ,headache ,fever, etc. Pt denies any GI symptoms. His had COVID recently but he tested negative two weeks ago. Pt is fully vaccinated. Pt also has history of ? liver cirrhosis. Pt denies any abd pain or jaundice .Pt has been cutting down on alcohol Pt is noncompliant with liver MRI or GI referral insomnia Pt has chronic i nsomnia. pt denies any snoring or fatigue Pt takes ambien qhs PRN and doing ok. pt needs refill liver1 Pt has ? liver c irrhosis. Pt denies any abd pain or jaundice or bruising. Pt is noncompliant with liver specialist referral. His MRI of liver was denied by insurance. Pt states that he rarely drinks alcohol now pain1 Pt c/o left ear pain, left jaw pain, left lower toothache and a tender spot left submandibular area for several days. Pt denies any fever or headache. Pt denies any sinus symptoms Pt denies any fever, chill, cough, sob, etc. Pt denies any hearing loss. . Pt notices left lower molar pain with chewing and also cold temp liver1 Pt has ? liver c irrhosis. Pt denies any abd pain or jaundice or bruising. Pt is noncompliant with liver specialist referral. His MRI of liver was denied by insurance. Pt states that he rarely drinks alcohol now insomnia1 Pt has insomnia Pt denies any snoring or any trouble with breathing at night .Pt doing well with ambien. Pt needs refill HTN Pt has HTN Pt ta chelseajose manjula and his bp is ok Pt denies any swelling physical Pt needs annual physical Pt has chronic insomnia and also HTn Pt takes ambien qhs and also norvasc. Pt states that his bp is around 130/70. Pt denies any fatigue. Pt denies any snoring. Pt has ? liver cirrhosis Pt denies any abd pain or jaundice pt still drinks alcohol but not daily Pt states that he is cutting down Pt denies any bruising or bleeding. Pt c/o itchy rash on both axillary area for several months and is recurrent. Pt denies any axillary lymph Pt denies any other complaints . insomnia1 Pt has chronic i nsomnia. Pt takes ambien qhs PRN and doing ok pt denies any difficulty with breathing or snoring at night Pt denies any fatigue HTN Pt has HTN. pt t [place]. His bp is around 120/70 at home Pt denies any chest pain or headache. liver1 Pt has possible liver cirrhosis. Pt denies any abd pain or any easy bruising or bleeding. Pt is noncompliant with MRI or GI referral Pt had liver ultrasound done which suggested possible cirrhosis. His recent lab is ok liver1 Pt has mildly el evated LFT Pt denies any abd pain or jaundice pt had ultrasound done which showed cirrhosis. Pt does drink 4-5 beers on the weekend. Pt has not done LFT or hepatitis yet. LFT Pt has mildly hi gh LFT Pt denies any abd pain or jaundice Pt does not use IV drugs. pt drinks about 18 beers per week. PHysical Pt needs annual physical pt has HTn. Pt takes norvasc and his BP is stable. Pt has insomnia Pt denies any snoring or fatigue. Pt doing ok with ambien qhs PRn pt needs refill. Pt denies any other complaints. nevus1 Pt notices a sma ll mole in [facility] area for several months and is getting slightly more protruding recently. Pt denies any bleeding or irritation. insomnia1 Pt has insomnia pt takes ambien qhs and doing ok. Pt does not snore or having any trouble with breathing at night. Pt sleeps ok with ambien HTN Pt has HTn. P ta jeremy norvasc and his bp is stable. Pt denies any swelling or water retention PHysical Pt needs annual physical. Pt has chronic insomnia. pt takes ambien qhs PRn and doing ok Pt has HTn. Pt takes norvasc and his BP is stable. Pt dropped something on left ankle/foot about one month ago. Pt c/o pain left ankle and left foot and some vague left plantar surface numbness since the injury. Pt denies any other complaints Pt denies any urinary symptoms and he denies any axillary issue anymore. pt also c/o night sweat for several months. pt recently traveled to [place]. Pt denies any coughing or sob insomnia1 Pt states that h e needs to take ambien nightly in order to fall asleep. Pt denie sany snoring. Pt denies any fatigue. HTN Pt has HTn. Pt t renu manjula and his bp is stable. axillary pain1 Pt c/o bilateal axillary pain, worse on left side and also some swelling nodule on left side for one week. Pt denies any drainage. Pt denie sany fever urinary frequency Pertinent nega tives include constipation, diarrhea, vomiting, dysuria or hematuria. Associated symptoms additional comments: Pt states that urinary frequency and nocturia resolved. Pt did not do lab. Pt denies any dysuria. PHysical Pt needs annaul physical. pt has chronic insomnia. Pt takes ambien and he states that it only works sometimes. He denies any snoring or any trobule with breathing at night pt denies any morning or daytime fatigue. pt also has chronic HTN. Pt takes norvac and his BP is stalbe. Pt is off lexapro on his own. Pt no longer has anxiety and depression. Pt denies any suicidal or homicidal thought Pt states that he notices waking up at least 2-3 times to urinate at night for several months Pt denies any similiar symptoms during the day. Pt denies any dysuria, slow stream, difficutly with urination, etc. Pt states that he does drink milk, water at night before sleep out of habit. Pt denies any polyuria polydipsia. Pt denie any trouble with breathing at night. Pt denies any edema. Pt denies any other complaints knee pain1 Pt has chronic r ight knee pain Pt has history of right knee cartilage surgery. Pt states that it swells up sometimes. Pt has sharp pain daily, worse with movement and standing. Pt denies any warmth or redness anxiety1 Pt has chronic a nxiety and depression. Pt takes lexapro and doing ok Pt denies any suicidal thought. Pt denies any crying spells. Pt has better mood now HTN P ttakes norvac for HTN and his BP is stable. Pt denies any water retention. Pt denies any chest pain or headache insomnia1 Pt has chronic i nsomnia. Pt denies any snoring or any trouble with breathing at night Pt takes ambien and working well HTN Pt takes norvac for HTN and his BP is ok today. Pt denies any chest pain or headache insomnia1 Pt has chornic i nsomnia Pt takes ambien and donig ok. Pt denies any snorning. Pt does not take ambien nightly depression1 Pt states that h is depression is mcuh better with lexapro. His mood is better. Pt denies any crying spells. Pt denies any feeling of hopelessness c[place]ore Pt has recurrent cold sore around lip area chronically. Pt states that he has painful fever blisters aorund lip every other week. Pt denies any genital blisters mole Pt has a dark mo le right arm for many years. Pt denies any size change. Pt notices a lightly spot on right arm for one week. Pt denies any itching. depression Additional infor mation: Pt feels depressed and anxious for one month. Pt has crying spells Pt feels sad and he constantly worry about things. Pt denies any suicidal or homicidal thought. cough Additional infor [place]: Pt just started mild dry cough since this AM. Pt denies any chest pain or headache. Pt denies any sore throat running nose. Pt denies any fever. HTN Pt has HTN. Pt h as been taking norvasc and his BP is ok. Pt denies any chest pain, headache, swelling. HTN1 Pt has HTN. Pt d enies any chest pain or headache His BP is also high at [facility] per patient insomnia1 Pt states that a mbien helps Pt does not need to take nightly pt has been sleeping ok. Pt denies any snoring sick Pt c/o sore thro at, running nose, coughing up phlegm for 4 days. Pt states that the cough med worked well for him. pt denies any fever. His nephew has strep throat Physical Pt needs annual physical. Pt has been having dry cough for two months. pt denies any chest pain or SOB. Pt denies any sore throat or sinus problem Pt feels mild pain around left side of his throat for several days. Pt denies any ear pian. Pt denies any fever. Pt does not work. Pt sometimes unable to sleep at night due to coughing. Pt has chronic insmonia. Pt has difficulty falling alseep. He does not snore. Pt denies any trouble with breathing at night. Pt denies any fatigue. Pt denies any other complaints. Instructions Date Instruction Additional Infor mer[place] Special diet education Related t o Body mass index (BMI) 28.0-28.9, adult Special diet education Related t o Body mass index (BMI) 28.0-28.9, adult Increase physical activity Relat ed to Liver disease Weight management Related to Enc ounter for general adult medical exam w abnormal findings Special diet education Related t o Body mass index (BMI) 28.0-28.9, adult Increase physical activity Relat ed to Encounter for general adult medical exam w abnormal findings Special diet education Related t o Body mass index (BMI) 29.0-29.9, adult Increase physical activity Relat ed to Insomnia Weight management Related to Enc ounter for general adult medical exam w abnormal findings Special diet education Related t o Body mass index (BMI) 29.0-29.9, adult Special diet education Related t o Body mass index (BMI) 29.0-29.9, adult Prescribed Activity and Exercise Education Related to Dietary Surveillance and Counseling Prescribed Diet Educ ation/Lifestyle Education Regarding Diet Related to Dietary Surveillance and Counseling Increase physical activity Relat ed to Insomnia Increase activity. Related to Es sential (primary) hypertension Follow a low sodium diet. Relate d to Essential (primary) hypertension Increase activity. Related to Es sential (primary) hypertension Follow a low sodium diet. Relate d to Essential (primary) hypertension Prescribed Activity and Exercise Education Related to Dietary Surveillance and Counseling Prescribed Diet Educ ation/Lifestyle Education Regarding Diet Related to Dietary Surveillance and Counseling Prescribed Diet Educ ation/Lifestyle Education Regarding Diet Related to Dietary Surveillance and Counseling Prescribed Activity and Exercise Education Related to Dietary Surveillance and Counseling Prescribed Diet Educ ation/Lifestyle Education Regarding Diet Related to Dietary Surveillance and Counseling Prescribed Activity and Exercise Education Related to Dietary Surveillance and Counseling Assessments Type Assessment Date assessment Essential (primary) hypertension assessment Mild intermittent asthma, uncomp licated assessment GERD w/o esophagitis Mental Status Date Cognitive Assessment Orientation - [place] ed to time, place, person, situation.
--- NOTE | 2025-02-12 11:12 | SUR.PREOP ---
Called patient when he did not show for procedure. Spouse states she tried to cancel for him a few days ago. Will cancel procedure for today. Provided office phone number to reschedule
[2025-03-18 10:20] VITALS: BMI 29.0
--- OUTSIDE RECORDS SUMMARY | 2025-03-25 03:55 | XMS_ITS | Continuity of Care Document ---
Author Organization [facility] Address [address] [place] [address] [place] [address] Phone Care Team Providers Care Software Engineer Kernel Name Role Phone Devyn Tabares MD Unavailable Unavailable Allergies, Adverse Reactions, Alerts Substance Reaction Status Criticality No Known Allergies Active No Inform ation Medications Medication Instructions Dosage Effective Dates (start - stop) Status Comments Ambien 10 mg tablet take 1 tablet by oral route every day at bedtime as needed 10 MG - Active avoid drivi ng or operate machines Cymbalta 30 mg capsule,delayed release take 1 capsule by oral route every day 30 MG - Active irbesartan 150 mg tablet take 1 tablet by oral route every day 150 MG - Active Procedures Procedure Date OFFICE/OUTPATIENT [...] Diagnoses Date Provider Providers Copied on Encounter [facility], [address], [place], [address], tel:[phone] [facility] No Information [address] [place] [place], [address] , [place]. tel:[phone] OFFICE/OUTPA TIENT VISIT, EST [facility], [address], [address], tel:[phone] [facility] HTN (chief complaint) GERD1 (chief complaint) cough1 (chief complaint) depression 1 (chief complaint) breast1 (chief complaint) LFT (chief complaint) Essential (primary) hypertensionGERD w/o esophagitisMild intermittent asthma, uncomplicatedPolyp of colonMastodyniaGene ralized Anxiety DisorderLiver disease [address], [place], [place], [address] , [place]. tel:[phone] OFFICE/OUTPA TIENT VISIT, EST [facility], [address], [place], [place], [address], [place] tel:[phone] [facility] HTN (chief complaint) cough1 (chief complaint) GERD1 (chief complaint) Essential (primary) hypertensionMild intermittent asthma, uncomplicatedGERD w/o esophagitis Fe-2 5 Rayshawn Shepard. [address], [place], [place], [address] , [place]. tel:[phone] PREV VISIT, EST, AGE 40-64 [facility], [address], [place], [place], [address], [place] tel:[phone] [facility] physical (chief complaint) Encounter for general adult medical exam w abnormal findingsEssential (primary) hypertensionPrimary insomniaPolyp of colonAcute bronchitis Feb-0 5 Rayshawn Shepard. [address], [place], [place], [address] , [place]. tel:[phone] OFFICE/OUTPA TIENT VISIT, EST [facility], [address], [place], [place], [address], [place] tel:[phone] [facility] cough1 (chief complaint) eczema1 (chief complaint) Acute bronchitisEczema Sep- 4 Rayshawn Shepard. [address], [place], [place], [address] , [place]. tel:[phone] OFFICE/OUTPA TIENT VISIT, EST [facility], [address] [place], [address], [place] tel:[phone] [facility] insomnia1 (chief complaint) HTN (chief complaint) skin (chief complaint) Essential (primary) hypertensionEczemaT inea corporisPrimary insomnia Jun-2 4 Rayshawn Shepard. [address], [place], [place], [address] , [place]. tel:[phone] OFFICE/OUTPA TIENT VISIT, EST [facility], [address], [place], [place], [address], [place] tel:[phone] [facility] insomnia1 (chief complaint) leg pain1 (chief complaint) skin (chief complaint) knee pain1 (chief complaint) Pain in left lower legPrimary insomniaUpper abdominal painPain in right kneeEdema 4 Rayshawn Shepard. [address], [address], [place], [place], [address] , [place]. [phone] OFFICE/OUTPA TIENT VISIT, EST [facility], [address], [place], [place], [address], [place] tel:[phone] [facility] insomnia1 (chief complaint) leg edema1 (chief complaint) abd pain1 (chief complaint) knee pain1 (chief complaint) Pain in left lower legPain in right kneeUpper abdominal painPrimary insomnia 4 Rayshawn Chung [address], [address], [place], [place], [address] , [place]. [phone] PREV VISIT, EST, AGE 40-64 [facility], [address], [place], [place], [address], [place] tel:[phone] [facility] physical (chief complaint) Encounter for general adult medical exam w abnormal findingsEssential (primary) hypertensionPrimary insomniaEczemaKeloi d 3 Rayshawn Chung [address], [address], [place], [place], [address] , [place]. [phone] PREV VISIT, EST, AGE 40-64 [facility], [address], [place], [place], [address], [place] tel:[phone] [facility] physical (chief complaint) Encounter for general adult medical exam w abnormal findingsPrimary insomniaEssential (primary) hypertensionAbnorma l weight gain 3 Rayshawn Shepard. [address], [address], [place], [place], [address] , [place]. tel:[phone] OFFICE/OUTPA TIENT VISIT, EST [facility], [address], [place], [place], [address], [place] [phone] [facility] sick (chief complaint) Viral infection 2 Tabares Devyn. [address], [address], [place], [place], [address] , [place]. tel: [phone] OFFICE/OUTPA TIENT VISIT, EST [facility], [address], [place], [place], [address], [place] tel:[phone] [facility] insomnia1 (chief complaint) HTN (chief complaint) cough1 (chief complaint) glucose1 (chief complaint) liver disease1 (chief complaint) Liver diseasePrimary insomniaHyperglycem iaEssential (primary) hypertensionChronic cough 2 Rayshawn Shepard. [address], [place], [place], [address] , [place]. tel: [phone] OFFICE/OUTPA TIENT VISIT, EST [facility], [address], [place], [place], [address], [place] tel:[phone] [facility] cough1 (chief complaint) dizziness1 (chief complaint) fatigue1 (chief complaint) HTN (chief complaint) Viral infectionEssential (primary) hypertensionAbnorma l weight gainFatigueDizzines s 2 Rayshawn Shepard. [address], [address], [place], [place], [address] , [place]. tel:[phone] PREV VISIT, EST, AGE 40-64 [facility], [address], [place], [place], [address], [place] tel:[phone] [facility] cough1 (chief complaint) Encounter for general adult medical exam w abnormal findingsLiver diseaseInsomniaEsse ntial (primary) hypertensionChronic cough 2 Rayshawn Devyn. [address], [address], [place], [place], [address] , [place]. tel: [phone] OFFICE/OUTPA TIENT VISIT, EST [facility], [address], [place], [place], [address], [place] tel:[phone] [facility] insomnia1 (chief complaint) liver1 (chief complaint) pain1 (chief complaint) Liver diseaseEssential (primary) hypertensionInsomni aAtypical facial pain 1 Rayshawn Chung [address], [place], [place], [address] , [place]. tel:[phone] OFFICE/OUTPA TIENT VISIT, [facility], [address], [place], [place], [address], [place] tel:[phone] [facility] HTN (chief complaint) insomnia1 (chief complaint) liver1 (chief complaint) Liver diseaseInsomniaEsse ntial (primary) hypertension Mar- 1 Rayshawn Chung [address], [place], [place], [address] , [place]. tel:[phone] PREV VISIT, EST, AGE 40-64 [facility], [address], [place], [place], [address], [place] tel:[phone] [facility] physical (chief complaint) Encounter for general adult medical exam w abnormal findingsTinea corporisInsomniaEss ential (primary) hypertensionLiver disease May- 0 Rayshawn Chung [address], [address], [place], [place], [address] , [place]. tel:[phone] OFFICE/OUTPA TIENT VISIT, EST [facility], [address], [place], [place], [address], [place] tel:[phone] [facility] insomnia1 (chief complaint) HTN (chief complaint) liver1 (chief complaint) Cirrhosis of liverInsomniaEssent ial (primary) hypertension Dec-3 0 Rayshawn Shepard. [address], [address], [place], [place], [address] , [place]. tel:[phone] OFFICE/OUTPA TIENT VISIT, [facility], [address], [place], [place], [address], [place] tel:[phone] [facility] liver1 (chief complaint) Liver diseaseCirrhosis of liver Rayshawn Shepard. [address], [place], [place], [address] , [place]. [phone] Referring Provider: Hammad Mo [address], [place], [place], [address]. tel:[phone] OFFICE/OUTPA TIENT VISIT, EST [facility], [address], [place], [place], [address], [place] tel:[phone] [facility] LFT (chief complaint) Liver disease Rayshawn Shepard. [address], [address], [place], [place], [address] , [place]. [phone] Referring Provider: Hammad [address], [place], [place], [address]. tel:[phone] PREV VISIT, EST, AGE 40-64 [facility], [address], [place], [place], [address], [place] tel:[phone] [facility] PHysical (chief complaint) Encounter for general adult medical exam w abnormal findingsInsomniaEss ential (primary) hypertension 9 Rayshawn Shepard. [address], [place], [place], [address] , [place]. [phone] Referring Provider: Hammad [address], [place], [place], [address]. tel:[phone] OFFICE/OUTPA TIENT VISIT, EST [facility], [address], [place], [place], [address], [place] tel:[phone] [facility] HTN (chief complaint) insomnia1 (chief complaint) nevus1 (chief complaint) InsomniaEssential (primary) hypertensionOther hypertrophic disorders of the skin 8 Rayshawn Shepard. [address], [place], [place], [address] , [place]. [phone] Referring Provider: Devyn Tabares, [address], [place], [place], [address]. tel:[phone] PREV VISIT, EST, AGE 40-64 [facility], [address], [place], [place], [address], [place] [phone] [facility] PHysical (chief complaint) Encounter for general adult medical exam w abnormal findingsNight sweatsEssential (primary) hypertensionPain in left ankleInsomnia 8 Rayshawn Shepard. [address], [place], [place], [address] , [place]. [phone] Referring Provider: Hammad Mo [address], [place], [place], [address]. tel:[phone] OFFICE/OUTPA TIENT VISIT, EST [facility], [facility] [address], [place], [place], [address], [place] [phone] [facility] insomnia1 (chief complaint) HTN (chief complaint) axillary pain1 (chief complaint) urinary frequency (chief complaint) InsomniaEssential (primary) hypertensionLocaliz ed enlarged lymph nodesNocturia 7 Rayshawn Shepard. [address], [place], [place], [address] , [place]. tel:[phone] Referring Provider: Hammad [address], [place], [place], [address]. tel:[phone] PREV VISIT, EST, AGE 40-64 [facility], [address], [place], [place], [address], [place] [phone] [facility] PHysical (chief complaint) Encounter for general adult medical exam w abnormal findingsInsomniaEss ential (primary) hypertensionNocturi a 7 [address], [place], [place], [address] , [place]. [phone] Referring Provider: Hammad Mo [address], [place], [place], [address]. tel:[phone] OFFICE/OUTPA TIENT VISIT, EST [facility], [address], [place], [place], [address], [place] tel:[phone] [facility] insomnia1 (chief complaint) HTN (chief complaint) anxiety1 (chief complaint) knee pain1 (chief complaint) Other insomniaEssential (primary) hypertensionMajor depressive disorder, single episode, unspecifiedPain in right knee 0 3-201 6 Rayshawn Shepard. [address], [place], [place], [address] , [place]. tel:[phone] Referring Provider: Hammad [address], [place], [place], [address]. tel:[phone] OFFICE/OUTPA TIENT VISIT, [facility], [address], [place], [place], [address], [place] tel:[phone] [facility] HTN (chief complaint) insomnia1 (chief complaint) depression 1 (chief complaint) coldsore (chief complaint) Essential (primary) hypertensionMajor depressive disorder, single episode, unspecifiedOther insomniaHerpes simplex infection 0 7 6 Rayshawn Shepard. [address], [place], [place], [address] , [place]. [phone] Referring Provider: Hammad [address], [place], [place], [address]. tel:[phone] OFFICE/OUTPA TIENT VISIT, [facility], [address], [place], [place], [address], [place] tel:[phone] [facility] HTN (chief complaint) cough (chief complaint) depression (chief complaint) mole (chief complaint) Essential (primary) hypertensionRash and other nonspecific skin eruptionAcute bronchitis, unspecifiedDepressi on 0-201 6 Rayshawn Shepard. [address], [place], [place], [address] , [place]. [phone] Referring Provider: Hammad [address], [place], [place], [address]. tel:[phone] OFFICE/OUTPA TIENT VISIT, [facility], [address], [place], [place], [address], [place] tel:[phone] [facility] HTN1 (chief complaint) insomnia1 (chief complaint) sick (chief complaint) Essential (primary) hypertensionOther insomniaAcute upper respiratory infection, unspecifiedVitamin D deficiency, unspecified 6 Rayshawn Shepard. [address], [place], [place], [address] , [place]. tel:[phone] Referring Provider: Hammad [address], [place], [place], [address]. tel:[phone] PREV VISIT, NEW, AGE 40-64 [facility], [address], [place], [place], [address], [place] tel:[phone] [facility] Physical (chief complaint) Encounter for general adult medical exam w abnormal findingsEssential (primary) hypertensionOther insomniaCough 6 Rayshawn Shepard. [address], [place], [place], [address] , [place]. tel:[phone] Referring Provider: Hammad Mo [address] [facility] [address], [place], [place], [address]. tel:[phone] Family History Family Member Type Diagnosis Age At Onset Mother Problem (finding) Stroke Father Problem (finding) Unknown Brother Problem (finding) Alive and well Payers Payer name Insurance type Covered constitution party ID Authorlitzya anabel(s) [facility] CI [id number] Social History Type Description Quantity Date Captured [...] ordered Referral Referred To: GIDEON ZULUAGA [address], [place], [phone] Ordered: Referrals: Allopathic & Osteopathic Physicians : Orthopaedic Surgery. GIDEON ZULUAGA. Evaluate and treat ordered Referral Ordered: LOWER LEG TIB/FIB XRAY Left ordered Referral Ordered: Jayme Santana -Allopathic & Osteopathic Physicians : Internal Medicine : Gastroenterology (related to Liver disease) ordered Referral Referred To: Jayme Santana [address]
[facility] [address] [place], [place], [phone] Ordered: Referrals: Allopathic & Osteopathic Physicians : [...] Samayoa [address] [place], [phone] Ordered: Referrals: Jesus Samayoa. Evaluate and treat ordered Referral Ordered: Bjorn Bailon (related to Rash and other nonspecific skin eruption) ordered Referral Referred To: Bjorn Bailon [address] [place], [phone] Ordered: Referrals: Bjorn Bailon. Evaluate and treat ordered Appointment Ronald Ross BOOKED Appointment Ronald Ross BOOKED History Of Present Illness Encounter Date Complaint History Of Prese nt Illness HTN Pt has HTN Pt ta kes irbesartan and his bp is around 120/80 at home. he run out of medicine 3 days ago and his bp is borderline high. Pt denies any chest pain or headache GERD1 Pt has history o f mild [...] denies any abd pain or jaundice HTN pt has HTN. Pt t akes norvasc and his bp has been high at home around 150/100. Pt denies any chest pain or headache GERD1 pt has intermitt ent GERD pt states that the symptoms are worse at night he notices some sore throat in the morning. cough1 Pt c/o persisten t clear phlegmy cough for at least two moths pt denies any fever ,chill chest pain, Pt had normal chest x ray pt took abx 3 weeks ago but did not help .Pt also notices some wheezing and sob recently as well Pt denies any GERD physical Pt needs annual physical pt has [...] HTN Pt has HTN. Pt t renu fair and his bp is ok. insomnia1 Pt [...] Pt takes ambien qhs and doing ok. knee pain1 Pt has history o f right knee meniscus surgery several years ago. Pt notices recurrent right knee pain with some swelling for the past several weeks Pt denies any redness or warmth or ROM issue Pt denies any injury Pt states that the right knee pain is worse with movement and bending leg edema1 Pt has history o f [...] denies any redness or warmth or drainage physical Pt needs annual physical pt has [...] check his temp but he feels warm HTN Pt has HTN, Pt t akes [...] liver. Pt denies any bruising or bleeding insomnia1 Pt has chronic i nsomnia. pt takes ambien qhs PRN and doing ok. Pt denies any snoring or any trouble with breathing at night fatigue1 Pt has been feel ing fatigue since last month Pt sleeps ok Pt has mild snoring only when he is tired. HTN Pt has mild HTn Pt takes norvasc and his bp is borderline high cough1 Pt has persisten t dry cough [...] palpitation. Pt denies any syncope cough1 Pt needs annual physical. pt has [...] refill HTN Pt has HTN Pt ta jeremy fair and his bp is ok Pt denies [...] Pt notices a sma ll mole in [facility] area for several months and is getting slightly more protruding recently. Pt denies any bleeding or irritation. insomnia1 Pt has insomnia pt takes ambien qhs and doing ok. Pt does not snore or having any trouble with breathing at night. Pt sleeps ok with ambien HTN Pt has HTn. P ta kes [...] for several months. pt recently traveled to [place]. Pt denies any coughing or sob insomnia1 Pt states that h e needs to take ambien nightly in order to fall asleep. Pt denie sany snoring. Pt denies any fatigue. HTN Pt has HTn. Pt t akowen norvasc and his bp is stable. axillary pain1 [...] Pt states that h is depression is [facility] better with lexapro. His mood is better. [...] headache His BP is also high at [facility] per patient insomnia1 Pt states [...]
--- OUTSIDE RECORDS SUMMARY | 2025-03-25 03:55 | XMS_ITS | Clinical Summary ---
Author Organization [facility] Address [address] [place] [address] Care Team Providers Care Barge Hand Name Role Phone Unavailable Primary Care Provider Unavailabl e Source Comments [facility] [employer],non-owned Affiliates and Associated Physician Practices is amultiple site organization consisting of ambulatory clinics and hospital sitesin [place], [place], [place] and [place]. This disclosure is being madepursuant to the Care Everywhere program and may not contain all information available regarding this patient. 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
[2025-03-25 06:19] VITALS: BP 163/98; PULSE 66; RESP 16; TEMP 36.6; O2SAT 100
[2025-03-25] MEDS: LACTATED RINGERS 1,000 ML 150 ML IV CONT (06:27)
--- NOTE | 2025-03-25 07:16 | WPDANESEPPF ---
Anes - Initial Pre Proc Eval Procedure: Operation Date: 03/25/25 07:30 Proposed Procedures p Colonoscopy - Denis Massey MD Date/Time: 03/25/25 07:16 Surgeon: Denis Massey MD Pre Op Diagnosis: personal hx of colon polyps Patient Data Age: 49 Gender: M Height: 1.7 m Weight: 90.2 kg Last Vital Signs Temp 98 F 03/25/25 06:19 Pulse 66 03/25/25 06:19 Resp 16 03/25/25 06:19 BP 163/98 H 03/25/25 06:19 Pulse Ox 100 03/25/25 06:19 O2 Del Method Room Air 03/25/25 06:19 Allergies Allergy/AdvReac Type Severity Reaction Status Date / Time No Known Allergies Allergy Unknown Verified 03/25/25 06:17 Home Medications ?Medication ?Instructions ?Recorded ?Confirmed ?Type clotrimazole-betamethasone 1 1 applic topical DAILY 02/02/25 03/25/25 History %-0.05 % topical cream irbesartan 75 mg tablet (Avapro) 75 mg PO DAILY 02/02/25 03/25/25 History meloxicam 15 mg tablet 15 mg PO DAILY 02/02/25 03/25/25 History omeprazole 20 mg capsule,delayed 20 mg PO DAILY PRN acid 03/18/25 03/25/25 History release zolpidem 10 mg tablet 10 mg PO HS 03/18/25 03/25/25 History Patient hx anesthesia problems: none Family hx anesthesia problems: none Results Review: All pre-operative results and documents have been reviewed as part of the pre-operative evaluation. [facility] Past Medical History Medical History (Updated 02/11/25 @ 15:23 by Will Carpenter DO) Hypertension Family History Family History (Updated 05/11/16 @ 23:19 by DOCTOR UNKNOWN) Mother Family history of diabetes mellitus in first degree relative Social History Social History Smoking status: Never smoker Alcohol intake: current Substance use type: does not use Living arrangements: with family Spiritual care concerns: No Anes - Eval Final PreProcedure Day of Procedure 03/25/25 07:16 Patient weight: obese Heart: regular rate and rhythm Lungs: clear to auscultation Airway: Mallampati scale class II Neurological: alert and oriented Last oral intake: >/= 8 hours ASA classification: II Emergent: no Anesthetic plan: proceed Anesthesia type and monitoring: general GIVS and standard monitoring Results Review: All pre-operative results and documents have been reviewed as part of the pre-operative evaluation. Informed Consent: The patient's anesthetic plan and its attendant risks and benefits were discussed with the patient/family/POA. Questions were solicited and answers provided to the satisfaction of the patient/family/POA.
--- NOTE | 2025-03-25 07:21 | PM.HPGS ---
History of Present Illness History of Present Illness Consent: Risks, benefits, and alternatives have been discussed and questions answered. Patient agrees to proceed with procedure. Chief complaint: personal hx of colon polyps Narrative: Ronald Ross is a 49 year old male with colon polyp in 2017 Review of Systems Review of Systems: All systems reviewed & are unremarkable except as noted in HPI and below PMFSH Past Medical History Medical History (Updated 03/25/25 @ 07:23 by Denis Massey MD) Colon polyp Hypertension Family History Family History (Updated 05/11/16 @ 23:19 by DOCTOR UNKNOWN) Mother Family history of diabetes mellitus in first degree relative Social History Social History Smoking status: Never smoker Alcohol intake: current Substance use type: does not use Living arrangements: with family Spiritual care concerns: No Meds Home Medications and Allergies Home Medications ?Medication ?Instructions ?Recorded ?Confirmed ?Type clotrimazole-betamethasone 1 1 applic topical DAILY 02/02/25 03/25/25 History %-0.05 % topical cream irbesartan 75 mg tablet (Avapro) 75 mg PO DAILY 02/02/25 03/25/25 History meloxicam 15 mg tablet 15 mg PO DAILY 02/02/25 03/25/25 History omeprazole 20 mg capsule,delayed 20 mg PO DAILY PRN acid 03/18/25 03/25/25 History release zolpidem 10 mg tablet 10 mg PO HS 03/18/25 03/25/25 History Allergies Allergy/AdvReac Type Severity Reaction Status Date / Time No Known Allergies Allergy Unknown Verified 03/25/25 06:17 Vital Signs Vital Signs - 24 hr 03/25/25 06:19 Temperature 98 F Pulse Rate 66 Respiratory Rate 16 Blood Pressure 163/98 H Pulse Oximetry 100 Oxygen Delivery Room Air Exam Const: General: comfortable and no acute distress HENMT: Face/Nose/Sinus: Normal nares present Eyes: General: appearance normal, both eyes and all related structures Neck: Neck: no JVD Resp: Auscultation: clear to auscultation bilaterally Cardio: Rate: regular rate Rhythm: regular rhythm GI: Inspection: non-distended GI Palp: Yes Soft to palpation Skin: General skin exam: normal color Neuro: General: gait normal Speech: normal speech Extrem: General: normal to inspection Psych: Mental Status: mental status grossly normal Assessment and Plan Assessment and plan (1) Colon polyp: Code(s): K63.5 - Polyp of colon Status: Acute Assessment and Plan: colonoscopy
--- NOTE | 2025-03-25 07:47 | S_PTH ---
PATIENT: Ronald Ross LOC: [facility]#:[id number] AGE/SX: 49/M ROOM: RE03/25/[address]: Denis Massey MD : 1975 BED: DIS: 03/25/2025 SPEC #: [id number] RECD: 03/25/25 08:54 STATUS: ABDIEL REQ #: [id number] LUZ: 03/25/25 07:[address]: Denis Massey DEPT: [facility] Surgical RECD BY: Hayley Dow ENTERED: 03/25/25 08:54 SP TYPE: Surgical OTHR DR: Devyn Tabares MD Tissues: A - Colon Polypectomy Procedures: Hematoxylin and Eosin Stain Gross and Microscopic Level 4
[2025-03-25 07:50] VITALS: BP 124/82; PULSE 68; RESP 20; O2SAT 96
[2025-03-25 08:00] VITALS: BP 130/88; PULSE 60; RESP 18; O2SAT 97
[2025-03-25 08:10] VITALS: BP 138/97; PULSE 62; RESP 18; O2SAT 99
== END 2025-03-25 08:20 | disposition home or self-care (01) ==
PROVIDERS: PCP Emergency Medicine; Referring Provider Emergency Medicine; Visit Provider Internal Medicine Gastroenterology
PROC: 0DJD8ZZ Inspection of Lower Intestinal Tract, Via Natural or Artificial Opening Endoscopic (ICD-10-PCS; CPT 45378; principal; 2025-03-25 07:30)
DX: Z12.11 Encounter for screening for malignant neoplasm of colon (principal); K63.5 Polyp of colon; I10 Essential (primary) hypertension; E66.9 Obesity, unspecified; Z68.31 Body mass index [BMI] 31.0-31.9, adult; K64.8 Other hemorrhoids; K57.30 Diverticulosis of large intestine without perforation or abscess without bleeding
CPT/HCPCS: 45380; 88305; J2003; J2704; J7120

== ENCOUNTER 2025-04-08 10:28 | Outpatient (CLI) | payer BC, SELFPAY ==
--- NOTE | ~2025-04-08 | US_ITS ---
COMPLETE ABDOMINAL ULTRASOUND Ordering provider: Devyn Tabares MD History: . liver disease . Comparison: None. FINDINGS: LIVER: Normal size and increased echogenicity. No perihepatic fluid collections are identified. Focal hypoechoic area is seen adjacent to the gallbladder measuring 2.4 x 1.6 x 1.8 cm GALLBLADDER: Unremarkable. No evidence for stones, sludge, gallbladder wall thickening or pericholecy stic fluid collections. A negative sonographic Dangelo's sign was noted. BILIARY DUCTS: No evidence for intra or extrahepatic biliary dilation. Common bile duct measures 4 mm in diameter which is within normal limits. PANCREAS: Normal echotexture and size visualized portions. SPLEEN: Normal size, echotexture and contour and measures 10.2 cm in length. KIDNEYS: Right measures 10.9x 4.7x 4.9 cm in length and the left 11x 4.5x 6.2 cm in length. There is no evidence for hydronephrosis, solid renal mass, renal calculi or perinephric fluid collections. No renal cysts. UPPER ABDOMINAL AORTA: Normal in caliber. IVC: Patent. FREE FLUID: None. IMPRESSION: Fat infiltration of the liver. Fat sparing area seen adjacent to gallbladder. Otherwise, the Unremark able complete ultrasound of the abdomen. Reviewed, dictated and finalized at location A. IMPRESSION: Fat infiltration of the liver. Fat sparing area seen adjacent to gallbladder. O therwise, the Unremarkable complete ultrasound of the abdomen.
== END 2025-04-08 10:29 | disposition home or self-care (01) ==
PROVIDERS: PCP Emergency Medicine; Visit Provider Emergency Medicine
DX: K76.9 Liver disease, unspecified (principal); K76.0 Fatty (change of) liver, not elsewhere classified
CPT/HCPCS: 76700